=== PATIENT | male | born 2000 | race Caucasian/White ===

== ENCOUNTER 2020-09-29 08:18 | Emergency (ER) | payer OTHER ==
[~2020-09-29] VITALS: Ht 185.4 cm; Wt 68.0 kg
[2020-09-29] MEDS ORDERED: Toradol10 MG PO ×2 (09:33→10:10)
[2020-09-29] MEDS ORDERED: CYCL10 PO ×2 (09:33→10:10)
== END 2020-09-29 10:14 | disposition home or self-care (01) ==
LOC: ER 08:18
DX: M79.645 Pain in left finger(s) (principal); M54.2 Cervicalgia; R07.89 Other chest pain; V49.40XA Driver injured in collision with unspecified motor vehicles in traffic accident, initial encounter; Y92.410 Unspecified street and highway as the place of occurrence of the external cause
CPT/HCPCS: 71046; 72040; 99283-25